=== PATIENT | female | born 1945 | race Caucasian/White ===

== ENCOUNTER 2021-07-07 21:39 | Outpatient (REF) | payer MEDICARE, MEDICAID, SELFPAY ==
[2021-07-07 20:23] LABS: Calculated LDL 214 mg/dL (<100); Cholesterol 293 mg/dL (<200); HDL Cholesterol 46 mg/dL (40-60); Triglyceride 166 mg/dL (<150)
== END 2021-07-07 21:40 | disposition home or self-care (01) ==
LOC: NCHCN 21:39
PROVIDERS: PCP Family Medicine; Visit Provider Nurse Practitioner Family
DX: E78.5 Hyperlipidemia, unspecified (principal); R73.03 Prediabetes
CPT/HCPCS: 80061; 83036; 84550

== ENCOUNTER 2022-11-24 14:19 | Outpatient (REF) | payer MEDICARE, SELFPAY ==
[2022-11-27 08:48] LABS: BUN 25 mg/dL (7-18); Calcium 9.4 mg/dL (8.5-10.1); Glucose 118 mg/dL (74-106)
[2022-11-27 08:49] LABS: Anion Gap 9.5 mmol/L (3-11); CO2 23.5 mmol/L (21.0-32.0); CREATININE 0.9 mg/dL (0.55-1.02); Chloride 107 mmol/L (98-107); Estimated GFR 66.26 (mL/min/1.73m2); Potassium 4.4 mmol/L (3.5-5.1); Sodium 140 mmol/L (136-145)
== END 2022-11-24 14:20 | disposition home or self-care (01) ==
LOC: NCHCN 14:19
PROVIDERS: PCP Family Medicine; Visit Provider Nurse Practitioner Family
DX: I10 Essential (primary) hypertension (principal)
CPT/HCPCS: 80048

== ENCOUNTER 2022-12-07 10:39 | Outpatient (REF) | payer MEDICARE, SELFPAY ==
[2022-12-07 15:49] LABS: Anion Gap 7.6 mmol/L (3-11); BUN 20 mg/dL (7-18); CO2 26.4 mmol/L (21.0-32.0); CREATININE 0.9 mg/dL (0.55-1.02); Calcium 9.5 mg/dL (8.5-10.1); Chloride 106 mmol/L (98-107); Estimated GFR 66.26 (mL/min/1.73m2); Glucose 170 mg/dL (74-106); Potassium 4.1 mmol/L (3.5-5.1); Sodium 140 mmol/L (136-145)
== END 2022-12-07 10:40 | disposition home or self-care (01) ==
LOC: NCHCN 10:39
PROVIDERS: PCP Family Medicine; Visit Provider Nurse Practitioner Family
DX: I10 Essential (primary) hypertension (principal)
CPT/HCPCS: 80048

== ENCOUNTER 2023-01-18 02:09 | Outpatient (CLI) | payer MEDICARE, MEDICAID, SELFPAY ==
--- NOTE | 2023-01-18 14:11 | DI.US_ITS ---
APPROVED REPORT EXAM: Comprehensive 2D, Doppler, and color-flow Echocardiogram Patient Location: Out-Patient Clinical Research Management Associate: Al Castro RDMS, RVT Indications: Heart Murmur Other Information Study Quality: Fair Conclusion Normal left ventricular wall thickness and chamber size. Ejection fraction is 55%. Wall motion is n ormal Right ventricle is normal in size and systolic function Both atria are normal in size Aortic valve is sclerotic and trileaflet without stenosis or regurgitation Mildly dilated aortic root and ascending aorta Wall motion Left Ventricle The left ventricle is normal size. The left ventricular systolic function is normal. The left ventric ular ejection fraction is within the normal range. Borderline concentric left ventricular hypertrophy . There is normal LV segmental wall motion. There is no ventricular septal defect visualized. LVEF is 55%. Right Ventricle Right ventricle is grossly normal in size. Right ventricular systolic function is grossly normal. Atria The left atrium size is normal. The right atrium size is normal. The interatrial septum is intact wit h no evidence for an atrial septal defect. Aortic Valve The Aortic valve is sclerotic. Aortic valve is trileaflet. There is no aortic valvular stenosis. No a ortic regurgitation is present. Mitral Valve The mitral valve is normal in structure. No evidence of mitral valve stenosis. Trace mitral regurgita tion. Tricuspid Valve The tricuspid valve is normal in structure. There is no tricuspid valve stenosis. Trace tricuspid reg urgitation. Unable to assess PA pressure. Pulmonic Valve The pulmonary valve is normal in structure. There is no pulmonic valvular stenosis. Trace pulmonic re gurgitation. Great Vessels Aortic root is mildly dilated. The ascending aorta is mildly dilated. Aortic arch is normal in calib er. IVC is normal in size and collapses >50% with inspiration. Pericardium There is no pericardial effusion. 2D Dimensions IVSD d PLAX 1.06 cm F: 0.6-1.0 LV Vol A2C d MOD 97.4 mL LVPW d PLAX 1.04 cm F: 0.6 - 1.0 LV Vol A4C d MOD 89.8 mL LVID d PLAX 4.14 cm F: 3.8 - 5.2 LA vol/ BSA A2C s A-L 22.3 mL/m2 LVDs 3.05 cm F: 2.2 - 3.5 LA vol/ BSA A4C s A-L 33.5 mL/m2 Ao Root d 3.42 cm F: 2.7 - 3.3 LA Vol/ BSA Biplane s A-L 31.8 mL/m2 RA Area A4C 13.36 cm2 LA Area A4C s MOD 20.69 cm2 RA Vol/ BSA A4C s A-L 18.2 mL/m2 LA Area A2C s MOD 14.48 cm2 Ao Asc Diam d 3.59 cm F: 2.3 - 3.1 LV EF A4C MOD 55.3 % LV EF Teichholz 50.9 % LV EF A2C MOD 55.4 % LVEF (Bennett's) 53.87 % F: 54 - 74 LV EF Biplane MOD 53.9 % LV Volume 72.75 mL F: 46 - 106 SV 51.14 mL LV Volume Index 38.69 mL/m2 F: 29 - 61 SV Index 27.24 mL/m2 LV Vol Biplane MOD 94.9 mL FS 25.60 % M-Mode TAPSE 1.63 cm (M/F) >1.7 LV Diastology MV E' medial 0.082 (>0.07 m/s) E/A Ratio 0.8 LV E/e MED 8.95 (<14) MV E Vmax 0.73 (0.4-1.3 m/s) MV E' lateral 0.097 (>0.1 m/s) MV A Vmax 0.90 (0.4-1.3 m/s) LV E/e LAT 7.55 (<14) MV E/A Ratio 0.77 MV E/E' medial 8.96 MV E/E' lateral 7.59 Aortic Valve LVOT Area 3.77 cm2 AoV Area Vmax 2.66 cm2 LVOT Vmax 1.26 m/s AoV Area/ BSA (Vmax) 1.42 cm2/m2 LVOT Mean Aubrey. 0.85 m/s VICTORIANO Mean Aubrey. 2.45 cm2 LVOT Peak Grad 6.3 mmHg VICTORIANO Mean Aubrey. Index 1.31 cm2/m2 LVOT Mean Grad 3.4 mmHg LVOT VTI 0.220 m LVOT Diam s 2.15 cm AoV Vmax 1.78 m/s Velocity Ratio 0.71 AoV Mean Aubrey. 1.31 m/s AoV Peak Grad 12.7 mmHg LVOT SV 82.81 mL AoV Mean Grad 7.6 mmHg AoV VTI 0.336 m AoV Area VTI 2.46 cm2 AoV Area/ BSA (VTI) 1.31 cm/m2 Mitral Valve MV DT 260 (160-240 msec) MV PHT 75 msec MV Area PHT 2.92 cm2 Pulmonary Valve PV Vmax 1.35 (0.5-1.5 m/s) RVOT Peak Gr. 1.53 mmHg PV Peak Grad 7.3 mmHg RVOT Mean Gr. 0.90 mmHg PV Mean Grad 3.6 mmHg RVOT VTI 0.128 m PV VTI 0.207 m RVOT Vmax 0.62 m/s
== END 2023-01-18 02:29 ==
PROVIDERS: PCP Family Medicine; Visit Provider Nurse Practitioner Family
DX: R01.1 Cardiac murmur, unspecified (principal)
CPT/HCPCS: 93306

== ENCOUNTER 2023-12-11 14:42 | Outpatient (REF) | payer MEDICARE, MEDICAID, SELFPAY ==
[2023-12-11 15:56] LABS: Anion Gap 12.5 mmol/L (3-11); BUN 23 mg/dL (7-18); CO2 22.5 mmol/L (21.0-32.0); CREATININE 0.9 mg/dL (0.55-1.02); Calcium 9.4 mg/dL (8.5-10.1); Chloride 108 mmol/L (98-107); Estimated GFR 65.84 (mL/min/1.73m2); Glucose 161 mg/dL (74-106); Sodium 143 mmol/L (136-145)
[2023-12-11 16:51] LABS: Uric Acid 6.2 mg/dL (2.6-6.0)
== END 2023-12-11 14:43 | disposition home or self-care (01) ==
LOC: NCHCN 14:42
PROVIDERS: PCP Family Medicine; Referring Provider Nurse Practitioner Family; Visit Provider Nurse Practitioner Family
DX: I10 Essential (primary) hypertension (principal); M25.571 Pain in right ankle and joints of right foot
CPT/HCPCS: 80048; 84550

== ENCOUNTER → 2023-12-24 04:40 | Outpatient (CLI) | payer MEDICARE, MEDICAID, SELFPAY ==
--- NOTE | 2023-12-24 12:04 | DI.RAD_ITS ---
Exam(s) XR ANKLE RT COMPLETE EXAM: XR ANKLE RT COMPLETE CLINICAL HISTORY: PAIN RT ANKLE JOINT, M25.571, SWELLING INTERMITTENTLY, ? OA. TECHNIQUE: 2D digital imaging was performed of the right ankle. Three images were obtained. AP, la teral and oblique views were obtained. COMPARISON: No exams were available for comparison FINDINGS: BONES: No acute fracture is present. No bony destructive lesion is seen. There is a moderate-sized p lantar calcaneal spur. Benign appearance of bony protuberance is seen of the lateral aspect of the l ateral malleolus. JOINTS: The ankle mortise is normally aligned. The joint space is well maintained. SOFT TISSUE: Normal. IMPRESSION: Right ankle as described above. Calcaneal spur. DATA REPOSITORY: RADIATION DOSE DELIVERED:
== END ==
PROVIDERS: PCP Family Medicine; Visit Provider Nurse Practitioner Family
DX: M25.571 Pain in right ankle and joints of right foot (principal)
CPT/HCPCS: 73610

== ENCOUNTER 2024-01-09 12:37 | Outpatient (CLI) | payer MEDICARE, MEDICAID, SELFPAY ==
--- NOTE | 2024-01-09 09:00 | DI.RAD_ITS ---
Exam(s) XR SHOULDER RT COMPLETE 2+V EXAM: XR SHOULDER RT COMPLETE 2+V CLINICAL HISTORY: evaluate shoulder. TECHNIQUE: 2D digital imaging was performed of the right shoulder. Two images were obtained. Grash ey and axillary views were obtained. COMPARISON: CR XR SHOULDER LT COMPLETE 2+V from 01/09/2024 FINDINGS: BONES: No acute fracture is present. No bony destructive lesion is seen. JOINTS: No dislocation present. There is loss of the glenohumeral joint with [id number]. Osteophyt es are seen particularly at the inferior aspect of the glenoid at the humerus. The acromial humeral interval is narrowed. SOFT TISSUE: The visualized lung is clear. IMPRESSION: Marked arthrosis of the glenohumeral joint. DATA REPOSITORY: RADIATION DOSE DELIVERED:
--- NOTE | 2024-01-09 09:00 | DI.RAD_ITS ---
Exam(s) XR SHOULDER LT COMPLETE 2+V EXAM: XR SHOULDER LT COMPLETE 2+V CLINICAL HISTORY: evaluate shoulder. TECHNIQUE: 2D digital imaging was performed of the left shoulder. Two images were obtained. Axilla ry and Grashey views were obtained. COMPARISON: CR LEFT SHOULDER COMPLETE from 07/20/2014 FINDINGS: BONES: No acute fracture is present. No bony destructive lesion is seen. JOINTS: No dislocation present. There is marked degenerative change at the glenohumeral joint with kate ne-on-bone loss of the joint space and osteophytes seen at the inferior aspect of the humeral head. There is flattening of the articular surfaces and subchondral sclerosis seen. There is a large spur arising from the lateral aspect of the humeral head. The acromioclavicular joint is intact. SOFT TISSUE: The visualized lungs are clear. IMPRESSION: Advanced degenerative changes at the glenohumeral joint. DATA REPOSITORY: RADIATION DOSE DELIVERED:
== END 2024-01-09 12:38 | disposition home or self-care (01) ==
LOC: DIORS 12:40
PROVIDERS: PCP Family Medicine; Visit Provider Student in an Organized Health Care Education/Training Program
DX: M19.011 Primary osteoarthritis, right shoulder; M19.012 Primary osteoarthritis, left shoulder
CPT/HCPCS: 99203; 73030

== ENCOUNTER 2024-08-04 02:27 | Outpatient (CLI) | payer MEDICARE, MEDICAID, SELFPAY ==
--- NOTE | 2024-08-04 13:00 | DI.CT_ITS ---
Exam(s) CT UPPER EXTREMITY LT WO EXAM: CT UPPER EXTREMITY LT WO CLINICAL HISTORY: PAIN, DECREASED ROM, LEFT SHOULDER PAIN,PRE SURGICAL. TECHNIQUE: Imaging Protocol: Axial computed tomography images with coronal and sagittal reformatted images were created and reviewed. COMPARISON: CR XR SHOULDER LT COMPLETE 2+V from 01/09/2024 CR XR SHOULDER RT COMPLETE 2+V from 01/09/2024 FINDINGS: Bones: There is no evidence of fracture or dislocation. Bony alignment is satisfactory. No cellulitic or osteomyelitic changes are identified. No lytic or sclerotic lesions are identified. Joints: Obliteration of the glenohumeral joint space, with a ifka-ah-nese appearance. Flattening of the humeral head and prominent periarticular spurring. Multiple joint space loose bodies. The AC juan int is unremarkable however there is a prominent bony excrescence emanating from the anterior inferio r aspect of the acromion. Soft Tissues: Normal. IMPRESSION: End-stage degenerative changes of the glenohumeral joint. RADIATION DOSE DELIVERED: 328.33mGy.cm Total DLP 328.33mGy.cm Total DLP DATA REPOSITORY: All CT scans at this facility are submitted to the National Radiology Data Registry (NRDR) Dose Index Registry (DIR) with the [employer] ([employer]). RADIATION OPTIMIZATION: All CT scans at this facility use at least one of these dose optimization te chniques: automated exposure control; mA and/or kV adjustment per patient size (includes targeted exa ms where dose is matched to clinical indication); or iterative reconstruction.
== END 2024-08-04 02:47 ==
PROVIDERS: PCP Family Medicine; Visit Provider Physician Assistant
DX: M19.012 Primary osteoarthritis, left shoulder (principal)
CPT/HCPCS: 73200

== ENCOUNTER 2024-08-20 19:45 | Outpatient (REF) | payer MEDICARE, SELFPAY ==
[2024-08-20 20:00] LABS: HCT 41.4 % (36.0-46.0); HGB 13.2 g/dL (11.2-15.7); MCH 27.9 pg (27.0-33.0); MCHC 31.9 % (32.0-36.0); MCV 88 fL (80-95); MPV 9.5 fL (8.0-11.0); Platelet Count 295 10^3/uL (130-400); RBC 4.73 10^6/uL (3.93-5.22); RDW 13.7 % (11.7-14.6); RDW-SD 44.1 fL; WBC 6.26 10^3/uL (4.4-10.8)
[2024-08-20 20:05] LABS: Bilirubin Negative (Negative); Blood Negative (Negative); Clarity Clear (Clear); Glucose Negative (Negative); Ketones Negative (Negative); Leukocyte Esterase Moderate (Negative); Nitrite Negative (Negative); Urobilinogen 0.2 mg/dL (Up to 0.2)
[2024-08-20 20:15] LABS: Bacteria Many HPF (Negative); C & S Indicated? No/Sq. Contamination; Crystals Negative HPF (Negative); Epithelial Cells Many HPF (Negative); Mucus Negative (Negative); RBC 0-2 HPF (0-2); WBC >50 HPF (0-5)
[2024-08-20 20:30] LABS: ALT 28 U/L (14-59); AST 24 U/L (15-37); Albumin 3.7 g/dL (3.4-5.0); Alkaline Phosphatase 86 U/L (46-116); Anion Gap 7.1 mmol/L (3-11); BUN 25 mg/dL (7-18); Bilirubin, Total 0.35 mg/dL (0.2-1.0); CO2 26.9 mmol/L (21.0-32.0); CREATININE 0.9 mg/dL (0.55-1.02); Calcium 9.5 mg/dL (8.5-10.1); Chloride 108 mmol/L (98-107); Estimated GFR 65.44 (mL/min/1.73m2); Glucose 97 mg/dL (74-106); Potassium 4.9 mmol/L (3.5-5.1); Sodium 142 mmol/L (136-145); Total Protein 7.4 g/dL (6.4-8.2)
[2024-08-20 21:17] LABS: MRSA PCR Negative (Negative)
== END 2024-08-20 19:46 | disposition home or self-care (01) ==
LOC: NCHCN 19:45
PROVIDERS: PCP Family Medicine; Visit Provider Physician Assistant Medical
DX: Z01.818 Encounter for other preprocedural examination (principal)
CPT/HCPCS: 80053; 85027; 87641; 81003; 81015

== ENCOUNTER 2025-05-27 17:55 | Outpatient (REF) | payer MEDICARE, SELFPAY ==
[2025-05-27 21:31] LABS: COMMENT (LAB VIEW ONLY) 125.54 mg/dL; Microalb ug/mg Crea 16.4 ug/mg Cr
== END 2025-05-27 17:56 | disposition home or self-care (01) ==
LOC: NCHCN 17:55
PROVIDERS: PCP Family Medicine; Visit Provider Physician Assistant Medical
DX: R73.03 Prediabetes (principal)
CPT/HCPCS: 82043; 82570

== ENCOUNTER → 2025-07-09 01:51 | Outpatient (CLI) | payer MEDICARE, SELFPAY ==
--- NOTE | 2025-07-09 13:32 | DI.DEXA_ITS ---
Exam(s) XR DEXA BONE DENSITY W/WO LEVI EXAM: XR DEXA BONE DENSITY W/WO LEVI CLINICAL HISTORY: ASYMPTOMATIC POSTMENOPAUSAL STATUS,Z78.0 TECHNIQUE: COMPARISON: No exams were available for comparison FINDINGS: Lateral Spine Image: Unremarkable. No compression deformities identified. Right hip: Total T-Score: -0.4 Total Z-Score: 1.6 T- and Z-scores: Within normal limits. Lumbar Spine: Total T-Score: -1.0 Total Z-Score: 1.6 T- and Z-scores: Within normal limits. IMPRESSION: No evidence of osteoporosis.
== END ==
PROVIDERS: PCP Family Medicine; Visit Provider Physician Assistant Medical
DX: Z78.0 Asymptomatic menopausal state (principal)
CPT/HCPCS: 77080